=== PATIENT | female | born 1975 | race Caucasian/White ===

== ENCOUNTER → 2020-06-18 | Outpatient (CLI) | payer BC ==
--- NOTE | 2020-06-18 14:12 | MM ---
Reason for exam: screening (asymptomatic). Baseline mammogram. History: Family history of breast cancer in mother at age 60. Physical Findings: Nurse did not find any significant physical abnormalities on exam. MG 3D Screening Mammo W/Cad Bilateral CC and MLO view(s) were taken. The breast tissue is heterogeneously dense. This may lower the sensitivity of mammography. Focal asymmetry posterior right breast. These results were verbally communicated with the patient and result sheet given to the patient on 06/18/20. ASSESSMENT: Benign, BI-RAD 2 RECOMMENDATION: Routine screening mammogram of both breasts in 1 year.
== END | disposition home or self-care (01) ==
LOC: RADMAMWWP 13:31
PROVIDERS: ATTEND Family Medicine
DX: Z12.31 Encounter for screening mammogram for malignant neoplasm of breast (principal); Z80.3 Family history of malignant neoplasm of breast
CPT/HCPCS: 77063; 77067

== ENCOUNTER → 2020-10-29 | Outpatient (CLI) | payer BC ==
--- NOTE | 2020-10-29 15:24 | US ---
EXAMINATION TYPE: US pelvic complete DATE OF EXAM: 10/29/2020 COMPARISON: NONE CLINICAL HISTORY: D64.9 ANEMIA,D72.829 ELEV WHITE BLOOD CELL COUNT. heavy menses with severe cramping TECHNIQUE: Transabdominal (TA) Date of LMP: 1 month ago EXAM MEASUREMENTS: Uterus: 9.7 x 4.6 x 5.7 cm Endometrial Stripe: 0.4 cm Right Ovary: 3.0 x 2.3 x 2.4 cm Left Ovary: 4.0 x 1.9 x 3.0 cm 1. Uterus: Anteverted appears wnl 2. Endometrium: appears thinned 3. Right Ovary: wnl 4. Left Ovary: wnl 5. Bilateral Adnexa: wnl 6. Posterior cul-de-sac: wnl IMPRESSION: Endometrial stripe is thinned for secretory phase of menstrual cycle otherwise unremarkab le transabdominal pelvic ultrasound.
== END | disposition home or self-care (01) ==
LOC: RADUSWWP 14:50
PROVIDERS: ATTEND Family Medicine
DX: R93.89 Abnormal findings on diagnostic imaging of other specified body structures (principal)
CPT/HCPCS: 76856

== ENCOUNTER → 2020-10-31 | Outpatient (CLI) | payer BC ==
--- NOTE | 2020-10-31 10:03 | CT ---
EXAMINATION TYPE: CT chest w con DATE OF EXAM: 10/31/2020 COMPARISON: None HISTORY: dyspnea CT DLP: 763 mGycm Automated exposure control for dose reduction was used. CONTRAST: CT scan of the chest is performed with IV Contrast, patient injected with 100 mL of Isovue 300. FINDINGS: LUNGS: The lungs are grossly clear, there is no concerning parenchymal mass or nodule identified. T here is no pleural effusion or pneumothorax seen. The tracheobronchial tree is patent. MEDIASTINUM: There are no greater than 1 cm hilar or mediastinal lymph nodes. No pericardial effusi on is seen. Thoracic aorta is of normal caliber. The heart is not enlarged. UPPER ABDOMEN: No significant abnormality appreciated. OTHER: No additional significant abnormality is seen. IMPRESSION: No distinct abnormality appreciated.
== END | disposition home or self-care (01) ==
LOC: RADCTMAIN 08:45
PROVIDERS: ATTEND Internal Medicine Hematology & Oncology
DX: R06.00 Dyspnea, unspecified (principal)
CPT/HCPCS: 71260; Q9967

== ENCOUNTER 2021-02-04 08:43 | Day surgery (SDC) | payer BC ==
[2021-01-31 10:29] VITALS: BMI 49.1
[~2021-02-04 08:43] MED LIST: LACTATED RINGERS 1,000 ML IV SCH; LIDOCAINE 1% (10MG/ML) FOR IV START INTRADERMA PRN
[2021-02-04 09:12] VITALS: RESP 16; TEMP 98.8
[2021-02-04] MEDS ORDERED: LIDOCAINE 1% INJ 10MG/ML (20 ML MDV) ONE (09:59)
[2021-02-04] MEDS ORDERED: MIDAZOLAM 2 MG/2 ML VIAL ONE (09:59)
[2021-02-04] MEDS ORDERED: KETAMINE 10 MG/ML 20 ML VIAL ONE (09:59)
[2021-02-04] MEDS ORDERED: GLYCOPYRROLATE 0.2 MG/ML 2 ML VIAL ONE (09:59)
[2021-02-04] MEDS ORDERED: PROPOFOL 10 MG/ML 20 ML VIAL IV ONE (09:59)
--- NOTE | 2021-02-04 10:04 | P.GSHP ---
History of Present Illness H&P Date: 02/04/21 Chief Complaint: GERD, anemia, colon cancer screening 45 row female here today for upper and lower endoscopy. Patient found to have microcytic anemia. Denies rectal bleeding or melena. Some chronic reflux. No family history of colon cancer. No dysphagia. No abdominal pain. Past Medical History Additional Past Medical History / Comment(s): migraines, "low iron levels", History of Any Multi-Drug Resistant Organisms: None Reported Past Surgical History: No Surgical Hx Reported Additional Past Surgical History / Comment(s): "anesthesia for later term a bortion" Past Anesthesia/Blood Transfusion Reactions: Motion Sickness Smoking Status: Former smoker - Past Family History Mother Family Medical History: Cancer, Coronary Artery Disease (CAD), Hypertension Additional Family Medical History / Comment(s): breast cancer Father Family Medical History: Myocardial Infarction ([place]) Additional Family Medical History / Comment(s): back pain Brother(s) Family Medical History: Deep Vein Thrombosis (DVT) Medications and Allergies Home Medications Medication Instructions Recorded Confirmed Type Ascorbic Acid [Vitamin C] 500 mg PO DAILY 11/27/20 02/04/21 History Cholecalciferol [Vitamin D3 (25 1,000 unit PO DAILY 11/27/20 02/04/21 History Mcg = 1000 Iu)] Ferrous Sulfate [Iron (65 MG 325 mg PO DAILY 11/27/20 02/04/21 History Elemental)] Omeprazole [PriLOSEC] 20 mg PO DAILY 11/27/20 02/04/21 History Zinc 50 mg PO DAILY 11/27/20 02/04/21 History Allergies Allergy/AdvReac Type Severity Reaction Status Date / Time No Known Allergies Allergy Verified 01/31/21 10:21 Surgical - Exam Vital Signs Temp Pulse Resp BP Pulse Ox 98.8 F 85 16 149/76 94 L 02/04/21 09:04 02/04/21 09:04 02/04/21 09:04 02/04/21 09:04 02/04/21 09:04 Physical exam: General: Well-developed, well-nourished HEENT: Normocephalic, sclerae nonicteric Abdomen: Nontender, nondistended Extremities: No edema Neuro: Alert and oriented Assessment and Plan (1) Colon cancer screening Narrative/Plan: Will proceed with upper and lower endoscopy Current Visit: Yes Status: Acute Code(s): Z12.11 - ENCOUNTER FOR SCREENING FOR MALIGNANT NEOPLASM OF COLON SNOMED Code(s): 938254727
--- NOTE | 2021-02-04 10:22 | P.PCN ---
Date of Procedure: 02/04/21 Procedure(s) Performed: PREOPERATIVE DIAGNOSIS: GERD, anemia, colon cancer screening POSTOPERATIVE DIAGNOSIS: Gastritis, normal colon PROCEDURE: 1. EGD with biopsy 2. Colonoscopy ANESTHESIA: MAC SURGEON: Gordon Garcia M.D. SPECIMENS: Antrum, body of stomach ENDOSCOPIC PROCEDURE: The patient was on the endoscopy table in the left decubitus position. The Olympus gastroscope was inserted into the oropharynx and passed under direct visualization to the region of the third portion of the duodenum. From that point the scope was slowly withdrawn inspecting all surfaces carefully. There were no neoplastic inflammatory or polypoid lesions throughout the duodenum. The pylorus was widely patent. The stomach was carefully inspected. There was mild to moderate gastritis present. A biopsy of the antrum took place to rule out H. pylori. A biopsy of the body of the stomach also took place. Retroflexion revealed a normal hiatus. The esophagus was then carefully examined. There were no neoplastic inflammatory or polypoid lesions throughout the visualized esophagus. The patient was kept on the endoscopy table in the left decubitus position. The Olympus colonoscope was inserted into the anus and passed under direct visualization to the base of the cecum. The appendiceal orifice was visualized. From that point the scope was slowly withdrawn inspecting all surfaces carefully. There were no neoplastic inflammatory or polypoid lesions throughout the cecum, ascending, transverse, descending, sigmoid and rectum. There was no visible diverticulosis noted. Digital rectal examination was normal. The patient was taken to the recovery room in stable condition per anesthesia guidelines. RECOMMENDATIONS: Resume diet. Follow-up colonoscopy in 10 years.
[2021-02-04 10:41] VITALS: BP 122/64; PULSE 75
== END 2021-02-04 11:12 | disposition home or self-care (01) ==
LOC: ORWHC2ENDO 08:43
PROVIDERS: ATTEND Surgery
DX: D50.9 Iron deficiency anemia, unspecified (principal); K21.9 Gastro-esophageal reflux disease without esophagitis; Z12.11 Encounter for screening for malignant neoplasm of colon; G43.909 Migraine, unspecified, not intractable, without status migrainosus; Z87.891 Personal history of nicotine dependence; Z82.49 Family history of ischemic heart disease and other diseases of the circulatory system; Z80.3 Family history of malignant neoplasm of breast; Z79.899 Other long term (current) drug therapy
CPT/HCPCS: 81025; 88305; 88342; 43239; J2250; J2001; J2704; G0121

== ENCOUNTER → 2023-01-14 | Outpatient (CLI) | payer BC ==
--- NOTE | 2023-01-14 11:35 | XR ---
EXAMINATION TYPE: XR chest 2V DATE OF EXAM: 01/14/2023 11:29 AM CLINICAL INDICATION:Female, 47 years old with history of R059,R0602 COUGH,SOB; [facility] COMPARISON: Chest radiographs from 10/31/2020 CT TECHNIQUE: XR chest 2V Frontal and lateral views of the chest. FINDINGS: Lungs/Pleura: There is no evidence of pleural effusion, focal consolidation, or pneumothorax. Pulmonary vascularity: Unremarkable. Heart/mediastinum: Cardiomediastinal silhouette is unremarkable. Musculoskeletal: No acute osseous pathology. Other findings: None IMPRESSION: No acute cardiopulmonary disease/process.
== END | disposition home or self-care (01) ==
LOC: RADXRYALE 10:33
PROVIDERS: ATTEND Physician Assistant
DX: R05.9 Cough, unspecified (principal); R06.02 Shortness of breath
CPT/HCPCS: 71046

== ENCOUNTER → 2024-06-02 | Outpatient (CLI) | payer BC ==
--- NOTE | 2024-06-02 13:38 | MM ---
Reason for Exam: Screening (asymptomatic). Last mammogram was performed 3 year(s) and 11 month(s) ago. Patient History: Menarche at age 10. First Full-Term at age 27. Mother had breast cancer, age 60. Last menstrual period: 05/28/2024 Risk Values: Lashay 5 year model risk: 2.0%. NCI Lifetime model risk: 18.6%. Prior Study Comparison: 06/18/2020 Bilateral Screening Mammogram, [facility]. Tissue Density: The breasts are heterogeneously dense, which may obscure small masses. Findings: Analyzed By CAD. There is possibly a new 8-9 mm obscured mass in the middle to posterior depth upper outer aspect right breast tissue . Overall Assessment: Incomplete: need additional imaging evaluation, BI-RAD 0 Management: Special View Mammogram of the right breast. Diagnostic Breast Ultrasound of the right breast. Return for additional spot 3-D and 3-D true lateral views of the right breast. Targeted ultrasound advised if lesion persists. Patient should continue monthly self-breast exams. A clinical breast exam by your physician is recommended on an annual basis. This exam should not preclude additional follow-up of suspicious palpable abnormalities. Note on Lashay scores and lifetime risk: 1. A Lashay score greater than 3% is considered moderate risk. If this is the case, consider specialist referral to assess eligibility for a risk reducing agent. 2. If overall lifetime risk for the development of breast cancer is 20% or higher, the patient may qualify for future screening with alternating mammogram and breast MRI. [facility], , 06/02/2024 1:35 PM. Electronically signed and approved by: Ramón Vargas M.D.
== END | disposition home or self-care (01) ==
LOC: RADMAMWWP 13:15
PROVIDERS: ATTEND Family Medicine
DX: Z12.31 Encounter for screening mammogram for malignant neoplasm of breast (principal); R92.333 Mammographic heterogeneous density, bilateral breasts; Z80.3 Family history of malignant neoplasm of breast
CPT/HCPCS: 77063; 77067

== ENCOUNTER → 2024-06-08 | Outpatient (CLI) | payer BC ==
--- NOTE | 2024-06-08 13:27 | MM ---
Reason for Exam: Clinical finding. Last screening mammogram was performed less than 1 month ago. Patient History: Menarche at age 10. First Full-Term at age 27. Mother had breast cancer, age 60. Risk Values: Lashay 5 year model risk: 2.0%. NCI Lifetime model risk: 18.6%. Tissue Density: Right: The breasts are heterogeneously dense, which may obscure small masses. Findings: Analyzed By CAD. Spot compression views demonstrate persistent nodule upper outer quadrant right breast measuring 7 mm approximately 8 to 9 cm from the nipple. Overall Assessment: Incomplete: need additional imaging evaluation, BI-RAD 0 Management: Diagnostic Breast Ultrasound of the right breast. . Results were given to the patient verbally at the time of exam. Patient should continue monthly self-breast exams. A clinical breast exam by your physician is recommended on an annual basis. This exam should not preclude additional follow-up of suspicious palpable abnormalities. Note on Lashay scores and lifetime risk: 1. A Lashay score greater than 3% is considered moderate risk. If this is the case, consider specialist referral to assess eligibility for a risk reducing agent. 2. If overall lifetime risk for the development of breast cancer is 20% or higher, the patient may qualify for future screening with alternating mammogram and breast MRI. [facility], , 06/08/2024 1:24 PM. Electronically signed and approved by: Anmol Taylor M.D. Radiologis
--- NOTE | 2024-06-08 13:53 | USB ---
Reason for Exam: Additional evaluation requested from abnormal screening. Patient History: Menarche at age 10. First Full-Term at age 27. Mother had breast cancer, age 60. Risk Values: Lashay 5 year model risk: 2.0%. NCI Lifetime model risk: 18.6%. Technique: Method: Targeted. Doppler: Color. Patient Position: Supine. Prior Study Comparison: 06/18/2020 Bilateral Screening Mammogram, [facility]. 06/02/2024 Bilateral MG 3D screening mammo w/cad, [facility]. Findings: The upper outer quadrant of the right breast, the axilla of the right breast and the retroareolar of the right breast were scanned. A targeted US of upper outer quadrant of the right breast and retro-areolar region were reviewed. At the 11:00 position there is a simple appearing cyst. Additional smaller hypoechoic areas likely represent interspersed tissue. Smaller of 6 mm hypoechoic nodule at the 10:00 position. Overall Assessment: Probably benign, BI-RAD 3 Management: Diagnostic Breast Ultrasound of the right breast in 3 months. A clinical breast exam by your physician is recommended on an annual basis and results should be correlated with mammographic findings. This exam should not preclude additional follow-up of suspicious palpable abnormalities. Results were given to the patient verbally at the time of exam. [facility], , 06/08/2024 1:50 PM. Electronically signed and approved by: Anmol Taylor M.D. Radiologis
== END | disposition home or self-care (01) ==
LOC: RADMAMWWP 12:58
PROVIDERS: ATTEND Family Medicine
DX: R92.8 Other abnormal and inconclusive findings on diagnostic imaging of breast (principal); R92.331 Mammographic heterogeneous density, right breast; Z80.3 Family history of malignant neoplasm of breast
CPT/HCPCS: 77061; 77065

== ENCOUNTER → 2024-09-07 | Outpatient (CLI) | payer BC ==
--- NOTE | 2024-09-07 15:35 | USB ---
Reason for Exam: Follow-up at short interval from prior study. Patient History: Menarche at age 10. First Full-Term at age 27. Mother had breast cancer, age 60. Risk Values: Lashay 5 year model risk: 2.0%. NCI Lifetime model risk: 18.6%. Technique: Method: Targeted. Prior Study Comparison: 06/18/2020 Bilateral Screening Mammogram, [facility]. 06/02/2024 Bilateral MG 3D screening mammo w/cad, [facility]. 06/08/2024 Right MG 3D work up w/cad RT, [facility]. Findings: The upper outer quadrant of the right breast, the axilla of the right breast and the retroareolar of the right breast were scanned. Technique utilized:US breast limited RT Image; Ultrasound imaging of: All 4 quadrants, the retroareolar region and axilla. Left breast: * Suspected lymph node at 9:00 8 cm from the nipple * Complicated cyst at 10:00 8 cm from the nipple measuring 13 x 6 x 6 mm., This may correspond of prior ultrasound follow up for this lesion is recommended. * Negative left axilla. Other findings on prior ultrasound are not definitively visualized. Overall Assessment: Probably benign, BI-RAD 3 Management: Diagnostic Breast Ultrasound of the left breast in 6 months. A clinical breast exam by your physician is recommended on an annual basis and results should be correlated with mammographic findings. This exam should not preclude additional follow-up of suspicious palpable abnormalities. Results were given to the patient verbally at the time of exam. [facility], , 09/07/2024 3:32 PM. Electronically signed and approved by: Surinder Suarez DO
== END | disposition home or self-care (01) ==
LOC: RADUSWWP 14:39
PROVIDERS: ATTEND Family Medicine
DX: R92.8 Other abnormal and inconclusive findings on diagnostic imaging of breast (principal); Z80.3 Family history of malignant neoplasm of breast